=== PATIENT | female | born 1985 | race African-American/Black ===

== ENCOUNTER 2018-09-12 13:48 | Emergency (ER) | payer MEDICAID, OTHER ==
[~2018-09-12] VITALS: Ht 162.6 cm; Wt 104.3 kg
[2018-09-12 13:50] VITALS: BP 150/87
[2018-09-12] MEDS ORDERED: KETOROLAC TROMETH 60MG/2ML VIAL IM ONE (15:00)
== END 2018-09-12 15:40 | disposition home or self-care (01) ==
LOC: ER 13:56 → EDBD 13:56 → ER 15:40
DX: S16.1XXD Strain of muscle, fascia and tendon at neck level, subsequent encounter (principal); E11.9 Type 2 diabetes mellitus without complications; V49.49XD Driver injured in collision with other motor vehicles in traffic accident, subsequent encounter
CPT/HCPCS: 72040; 96372; 99283; J1885

== ENCOUNTER 2018-11-01 12:36 | Emergency (ER) | payer MEDICAID ==
[~2018-11-01] VITALS: Ht 165.1 cm; Wt 113.4 kg
[2018-11-01] MEDS ORDERED: SODIUM CHLORIDE 0.9% 1,000 ML IV ONE (13:15)
[2018-11-01] MEDS ORDERED: ONDANSETRON HCL 4 MG/2 ML VIAL IV ONE (13:15)
[2018-11-01] MEDS ORDERED: MORPHINE SULFATE 4 MG/ML SYR/VIAL IV ONE (13:15)
[2018-11-01 13:17] LABS: Urine Bacteria NONE SEEN /hpf (None Seen); Urine Blood Negative /uL (Negative); Urine Mucus FEW (None Seen); Urine Specific Gravity 1.025 (1.001-1.035); Urine WBC 1 /hpf (0 - 5)
[2018-11-01 13:24] LABS: Basophils # (auto) 0.1 uL; Eosinophils # (auto) 0.1 uL; Monocytes # (auto) 0.7 uL; Monocytes % (auto) 8.6 % (0.0-12.0); Nucleated Red Blood Cells % 0.1 %; Red Blood Cells 4.77 10^6/uL (4.0-5.20)
[2018-11-01 13:26] LABS: Eosinophils % (auto) 1.4 % (0.0-7.0); Hemoglobin 11.9 g/dL (12.2-16.2); Lymphocytes # (auto) 1.8 uL; Lymphocytes % (auto) 23.3 % (10.0-50.0); Mean Corpuscular Hgb Conc. 31.4 g/dL (32.0-36.0); Mean Corpuscular Volume 79.7 fL (80.0-100.0); Neutrophils # (auto) 5.2 uL; Neutrophils % (auto) 65.7 % (37.0-80.0); Platelet Count (auto) 369 10^3/uL (140-450); Red Cell Distribution Width 16.1 % (11.8-14.3); White Blood Cell 7.9 10^3/uL (4.4-10.8)
[2018-11-01 13:45] LABS: Albumin 3.5 g/dL (3.4-5.0); Calcium 9.2 mg/dL (8.5-10.1); Potassium 4.2 mmol/L (3.5-5.1)
[2018-11-01 13:47] LABS: BUN/Creatinine Ratio 19.2
[2018-11-01 13:48] LABS: Bilirubin, Total 0.3 mg/dL (0.2-1.0); Total Protein 7.6 g/dL (6.4-8.2)
[2018-11-01 15:18] LABS: Alcohol, Urine < 3.0 mg/dL (0-5); Amphetamine Screen, Urine NEGATIVE (NEGATIVE); Barbiturate Scree,Urine NEGATIVE (NEGATIVE); Benzodiazephine Screen, Urine NEGATIVE (NEGATIVE); Cannabinoid Screen, Urine NEGATIVE (NEGATIVE); Opiate Scree,Urine NEGATIVE (NEGATIVE); Phencyclidine Screen, Urine NEGATIVE (NEGATIVE)
[2018-11-01 15:24] LABS: Cocaine Screen, Urine NEGATIVE (NEGATIVE)
[2018-11-01 17:50] VITALS: BP 142/87
== END 2018-11-01 17:53 | disposition home or self-care (01) ==
LOC: ER 12:36
DX: N83.201 Unspecified ovarian cyst, right side (principal); E11.65 Type 2 diabetes mellitus with hyperglycemia; D50.9 Iron deficiency anemia, unspecified
CPT/HCPCS: 36415; 74176; 76856; 80053; 80307; 81001; 81025; 83690; 85025; 96361; 96374; 96375; 99284; J2270; J2405; J7030

== ENCOUNTER 2021-04-20 23:16 | Emergency (ER) | payer MEDICAID ==
[~2021-04-20] VITALS: Ht 165.1 cm; Wt 122.5 kg
[2021-04-21 00:21] LABS: Eosinophils # (auto) 0.1 10 ^3/uL (0-0.8); Hemoglobin 10.3 g/dL (12.2-16.2); Lymphocytes # (auto) 1.7 10 ^3/uL (0.4-5.4); Monocytes # (auto) 0.6 10 ^3/uL (0-1.3); Monocytes % (auto) 7.4 % (0.0-12.0); Neutrophils % (auto) 70.7 % (37.0-80.0)
[2021-04-21 00:22] LABS: Basophils # (auto) 0 10 ^3/uL (0-0.2); Basophils % (auto) 0.5 % (0.0-2.0); Eosinophils % (auto) 0.8 % (0.0-7.0); Hematocrit 33.1 % (36.0-46.0); Lymphocytes % (auto) 20.6 % (10.0-50.0); Mean Corpuscular Hgb Conc. 31.2 g/dL (32.0-36.0); Mean Corpuscular Volume 73.7 fL (80.0-100.0); Neutrophils # (auto) 5.8 10 ^3/uL (1.6-8.6); Red Cell Distribution Width 18.2 % (11.8-14.3); White Blood Cell 8.1 10^3/uL (4.4-10.8)
[2021-04-21 00:54] LABS: Albumin 3.1 g/dL (3.4-5.0); BUN/Creatinine Ratio 14.3; Potassium 5.1 mmol/L (3.5-5.1)
[2021-04-21 00:57] LABS: Bilirubin, Total 0.3 mg/dL (0.2-1.0); Total Protein 7.1 g/dL (6.4-8.2)
[2021-04-21] MEDS ORDERED: LORazepam 2MG/ML-1ML VIAL ONE (02:30)
[2021-04-21] MEDS ORDERED: levETIRAcetam 500 MG/5ML INJ IV ONE (03:12)
[2021-04-21 04:42] VITALS: BP 105/46
== END 2021-04-21 05:00 | disposition home or self-care (01) ==
LOC: EDBD 23:16 → ER 23:18
DX: G40.909 Epilepsy, unspecified, not intractable, without status epilepticus (principal); E11.9 Type 2 diabetes mellitus without complications; R41.0 Disorientation, unspecified; R94.31 Abnormal electrocardiogram [ECG] [EKG]; Z20.822 Contact with and (suspected) exposure to COVID-19; Z98.890 Other specified postprocedural states; Z98.51 Tubal ligation status
CPT/HCPCS: 36415; 80053; 82542; 85025; 87426; 93005; 96365; 99285; J1953; J2060; J7060

== ENCOUNTER 2023-07-17 18:50 | Emergency (ER) | payer MEDICAID ==
[~2023-07-17] VITALS: Ht 165.1 cm; Wt 118.0 kg
[2023-07-17] MEDS ORDERED: SODIUM CHLORIDE 0.9% 1,000 ML IVB ONE (19:15)
[2023-07-17] MEDS ORDERED: LORazepam 2MG/ML-1ML VIAL IV ONE (19:15)
[2023-07-17] MEDS ORDERED: PHENYTOIN IV DILANTIN 1,000 MG in SODIUM CHL 0.9% 250 ML IV ONE (19:15)
[2023-07-17] MEDS ORDERED: levETIRAcetam 1000 mg/100ml 100 ML IV ONE (19:15)
[2023-07-17] MEDS: SODIUM CHLORIDE 0.9% 1,000 ML IVB ONE ×2 (19:15→20:18)
[2023-07-17 19:59] LABS: Basophils # (auto) 0 10 ^3/uL (0-0.2); Eosinophils # (auto) 0 10 ^3/uL (0-0.8); Eosinophils % (auto) 0.1 % (0.0-7.0); Hemoglobin 11.8 g/dL (12.2-16.2); Lymphocytes # (auto) 0.4 10 ^3/uL (0.4-5.4); Mean Corpuscular Volume 78.5 fL (80.0-100.0); Monocytes # (auto) 0.3 10 ^3/uL (0-1.3)
[2023-07-17 20:00] LABS: Basophils % (auto) 0.3 % (0.0-2.0); Hematocrit 37.7 % (36.0-46.0); Lymphocytes % (auto) 5.2 % (10.0-50.0); Mean Corpuscular Hemoglobin 24.6 pg (28.0-32.0); Mean Corpuscular Hgb Conc. 31.3 g/dL (32.0-36.0); Monocytes % (auto) 3.6 % (0.0-12.0); Neutrophils # (auto) 7.3 10 ^3/uL (1.6-8.6); Neutrophils % (auto) 90.8 % (37.0-80.0); Red Cell Distribution Width 15.6 % (11.8-14.3)
[2023-07-17 20:14] LABS: Alanine Aminotransferase 14 U/L (7-40); Albumin 4.1 g/dL (3.2-4.8); Alkaline Phosphatase 78 U/L (46-116); Anion Gap 8 (5-15); Aspartate Aminotransferase 13 U/L (13-40); BUN/Creatinine Ratio 12.5 (10.0-20.0); Bilirubin, Total 0.4 mg/dL (0.2-1.0); Blood Urea Nitrogen 10 mg/dL (9-23); Calcium 8.7 mg/dL (8.7-10.4); Carbon Dioxide 22 mmol/L (20-30); Chloride 105 mmol/L (98-107); Glucose 245 mg/dL (74-106); Magnesium 1.7 mg/dL (1.6-2.6); Phenytoin (Dilantin) < 2.0 ug/mL (10-20); Potassium 4.1 mmol/L (3.5-5.1); Sodium 135 mmol/L (136-145)
[2023-07-17 20:15] LABS: Valproic Acid (Depakene) < 3.0 ug/mL (50-100)
[2023-07-17 20:19] LABS: Base Excess -0.6 mmol/L (-2.0-2.0)
[2023-07-17 21:13] LABS: Blood Alcohol < 3.0 mg/dL (<10)
[2023-07-17 22:45] VITALS: TEMP 98.2
[2023-07-17 23:00] VITALS: BP 130/73
[2023-07-17 23:50] VITALS: PULSE 108; RESP 22; O2SAT 96
== END 2023-07-17 23:52 | disposition home or self-care (01) ==
LOC: EDBD 18:50 → EDUNIT# 18:50 → ER 18:50
DX: R56.9 Unspecified convulsions (principal); Z79.899 Other long term (current) drug therapy
CPT/HCPCS: 36415; 36600; 70450; 71045; 80053; 80164; 80185; 80320; 82805; 83735; 83880; 84484; 85025; 96365; 96367; 99285; J1165; J1953; J7030; J7050